=== PATIENT | female | born 1975 | race Caucasian/White ===

== ENCOUNTER → 2017-12-11 | Outpatient (CLI) | payer OTHER | END | disposition home or self-care (01) | LOC: RAH 13:29 | PROVIDERS: ATTEND Internal Medicine | DX: I82.4Z3 Acute embolism and thrombosis of unspecified deep veins of distal lower extremity, bilateral (principal) | CPT/HCPCS: 93970 ==

== ENCOUNTER → 2018-11-30 | Outpatient (CLI) | payer OTHER | END | disposition home or self-care (01) | LOC: OIH 15:42 | PROVIDERS: ATTEND Internal Medicine | DX: M25.551 Pain in right hip (principal) | CPT/HCPCS: 73502 ==

== ENCOUNTER → 2021-01-18 | Outpatient (CLI) | payer OTHER | END | disposition home or self-care (01) | LOC: OIH 13:12 | PROVIDERS: ATTEND Internal Medicine | DX: M79.605 Pain in left leg (principal); M24.852 Other specific joint derangements of left hip, not elsewhere classified; M24.851 Other specific joint derangements of right hip, not elsewhere classified | CPT/HCPCS: 72170; 73552 ==

== ENCOUNTER → 2023-11-24 | Outpatient (CLI) | payer OTHER | END | disposition home or self-care (01) | LOC: RAH 08:52 | PROVIDERS: ATTEND Internal Medicine Endocrinology, Diabetes & Metabolism | DX: E05.90 Thyrotoxicosis, unspecified without thyrotoxic crisis or storm (principal) | CPT/HCPCS: 76536 ==

== ENCOUNTER → 2023-12-09 | Outpatient (CLI) | payer OTHER | END | disposition home or self-care (01) | LOC: RAH 10:30 | PROVIDERS: ATTEND Internal Medicine Endocrinology, Diabetes & Metabolism | DX: E05.90 Thyrotoxicosis, unspecified without thyrotoxic crisis or storm (principal) | CPT/HCPCS: 78014; A9516 ==